=== PATIENT | female | born 1945 | race Caucasian/White ===

== ENCOUNTER 2016-06-24 16:10 | Emergency (ER) | payer MEDICARE, BC ==
[~2016-06-24] VITALS: Ht 154.9 cm; Wt 43.5 kg
[2016-06-24 16:10] VITALS: BP 129/82
== END 2016-06-24 17:14 | disposition home or self-care (01) ==
LOC: ER 16:12
DX: H60.8X2 Other otitis externa, left ear (principal)
CPT/HCPCS: A4606; Z7610

== ENCOUNTER 2023-03-17 16:24 | Inpatient (IN) | payer BC, MEDICARE ==
[~2023-03-17] VITALS: Ht 154.9 cm; Wt 72.6 kg
[2023-03-17 17:23] LABS: BASOPHILS # (AUTO) 0.1 K/uL (0.0-0.2); BASOPHILS % (AUTO) 1.2 % (0.0-2.0); EOSINOPHILS # (AUTO) 0.2 K/uL (0.0-0.7); LYMPHOCYTES # (AUTO) 1.4 K/uL (0.8-4.8); MEAN CORPUSCULAR HEMOGLOBIN 21 PG (26.0-33.0); MEAN CORPUSCULAR HGB CONC 30 g/dl (31.0-36.0); MEAN CORPUSCULAR VOLUME 70 fL (82-100); MONOCYTES # (AUTO) 0.5 K/uL (0.1-1.30); MONOCYTES % (AUTO) 5.8 % (2.0-12.0); NEUTROPHILS # (AUTO) 5.8 K/uL (1.8-8.9); PLATELET COUNT (AUTO) 232 K/uL (150-450); RED BLOOD CELL COUNT(AUTO) 2.83 MIL/uL (4.0-5.2); RED CELL DISTRIBUTION WIDTH 18.5 % (11.5-15.0)
[2023-03-17 17:25] LABS: HEMOGLOBIN 5.9 g/dL (11.5-14.8)
[2023-03-17 17:27] LABS: HEMATOCRIT 20 % (33-45)
[2023-03-17 17:33] LABS: CALCIUM, SERUM 8.9 mg/dL (8.5-10.1); CARBON DIOXIDE 22 mmol/L (21-32); CHLORIDE 106 mmol/L (98-107); CREATININE 1.3 mg/dL (0.6-1.3); GLUCOSE 98 mg/dL (74-106); POTASSIUM 4.2 mmol/L (3.5-5.1); SODIUM SERUM 139 mmol/L (136-145); UREA NITROGEN, BLOOD 23 mg/dL (7-18)
[2023-03-17] MEDS ORDERED: MELO-107 PO (18:50)
[2023-03-17] MEDS ORDERED: CLOP75TA15 PO (18:50)
[2023-03-17] MEDS ORDERED: ROSU20TA2 PO (18:50)
[2023-03-17] MEDS ORDERED: SERT25TA PO (18:50)
[2023-03-17 19:21] LABS: LYMPHOCYTES % (MANUAL) 16 % (16-48); MONOCYTES % (MANUAL) 6 % (0-11.0); NEUTROPHILS % (MANUAL) 77 (42-76)
[2023-03-17 19:22] LABS: ANISOCYTOSIS 1+; EOSINOPHILS % (MANUAL) 1 % (0-4); HYPOCHROMASIA 1+; PLATELET ESTIMATE ADEQUATE
[2023-03-17 19:23] LABS: OVALOCYTES 2+; TARGET CELLS 1+; TEAR DROP CELLS 1+
[2023-03-17 19:45] LABS: OCCULT BLOOD STOOL POSITIVE (NEGATIVE)
[2023-03-17] MEDS ORDERED: ACETAMINOPHEN 325 MG TABLET PO PRN (21:30)
[2023-03-17] MEDS ORDERED: MAG HYDROX/AL HYDROX/SIMETH 30 ML UDC PO PRN (21:30)
[2023-03-17] MEDS ORDERED: Z GUARD REMEDY 4 OZ OINT TP PRN (21:30)
[2023-03-17] MEDS ORDERED: ONDANSETRON HCL/PF 4 MG/2 ML VIAL IVP PRN (21:30)
[2023-03-17] MEDS ORDERED: MAGNESIUM HYDROXIDE 30 ML UDC PO PRN (21:30)
[2023-03-18] VITALS (7 sets, daily range): BP systolic 135–146; BP diastolic 78–86; TEMP 98.2–98.6; O2SAT 94–98
[2023-03-18 06:16] LABS: CALCIUM, SERUM 8.3 mg/dL (8.5-10.1); CARBON DIOXIDE 24 mmol/L (21-32); CHLORIDE 109 mmol/L (98-107); CREATININE 1.1 mg/dL (0.6-1.3); GLUCOSE 88 mg/dL (74-106); MAGNESIUM 2.1 mg/dL (1.8-2.4); PHOSPHORUS 4.1 mg/dL (2.5-4.9); POTASSIUM 4.2 mmol/L (3.5-5.1); SODIUM SERUM 140 mmol/L (136-145); UREA NITROGEN, BLOOD 18 mg/dL (7-18)
[2023-03-18 06:31] LABS: BASOPHILS # (AUTO) 0.1 K/uL (0.0-0.2); BASOPHILS % (AUTO) 0.8 % (0.0-2.0); EOSINOPHILS # (AUTO) 0.3 K/uL (0.0-0.7); EOSINOPHILS % (AUTO) 3.2 % (0.0-6.0); LYMPHOCYTES # (AUTO) 1.6 K/uL (0.8-4.8); LYMPHOCYTES % (AUTO) 19.7 % (20.0-44.0); MEAN CORPUSCULAR HEMOGLOBIN 23 PG (26.0-33.0); MEAN CORPUSCULAR HGB CONC 32 g/dl (31.0-36.0); MEAN CORPUSCULAR VOLUME 71 fL (82-100); MONOCYTES # (AUTO) 0.6 K/uL (0.1-1.30); MONOCYTES % (AUTO) 7.3 % (2.0-12.0); NEUTROPHILS # (AUTO) 5.7 K/uL (1.8-8.9); PLATELET COUNT (AUTO) 364 K/uL (150-450); RED BLOOD CELL COUNT(AUTO) 2.86 MIL/uL (4.0-5.2); WHITE BLOOD COUNT (AUTO) 8.2 K/uL (4.3-11.0)
[2023-03-18 06:36] LABS: HEMATOCRIT 20 % (33-45); HEMOGLOBIN 6.5 g/dL (11.5-14.8)
[2023-03-18 07:58] LABS: EOSINOPHILS % (MANUAL) 3 % (0-4); LYMPHOCYTES % (MANUAL) 15 % (16-48); MONOCYTES % (MANUAL) 7 % (0-11.0); NEUTROPHILS % (MANUAL) 75 (42-76)
[2023-03-18 07:59] LABS: ANISOCYTOSIS 1+; HYPOCHROMASIA 1+; OVALOCYTES 1+; PLATELET ESTIMATE ADEQUATE
[2023-03-18 08:08] LABS: THYROID STIMULATING HORMONE 1.797 uIU/mL (0.358-3.74)
[2023-03-18] MEDS: IV D5/0.45 NACL 1,000 ML IV PRN (08:37)
[2023-03-18] MEDS: PANTOPRAZOLE 40 MG VIAL IV SCH ×2 (08:46→22:00)
[2023-03-18] MEDS ORDERED: ANESTHESIA TRAY IN PYXIS 1 EA TRAY MC ONE (11:50)
[2023-03-19] MEDS: IV D5/0.45 NACL 1,000 ML IV PRN (02:53)
[2023-03-19 07:31] LABS: BASOPHILS # (AUTO) 0.1 K/uL (0.0-0.2); EOSINOPHILS # (AUTO) 0.3 K/uL (0.0-0.7); EOSINOPHILS % (AUTO) 4.3 % (0.0-6.0); HEMATOCRIT 25 % (33-45); LYMPHOCYTES # (AUTO) 1.3 K/uL (0.8-4.8); LYMPHOCYTES % (AUTO) 16.5 % (20.0-44.0); MEAN CORPUSCULAR HEMOGLOBIN 23 PG (26.0-33.0); MEAN CORPUSCULAR HGB CONC 32 g/dl (31.0-36.0); MEAN CORPUSCULAR VOLUME 74 fL (82-100); MONOCYTES # (AUTO) 0.7 K/uL (0.1-1.30); MONOCYTES % (AUTO) 8.5 % (2.0-12.0); NEUTROPHILS # (AUTO) 5.6 K/uL (1.8-8.9); NEUTROPHILS % (AUTO) 69.7 % (43.0-81.0); PLATELET COUNT (AUTO) 344 K/uL (150-450); RED BLOOD CELL COUNT(AUTO) 3.43 MIL/uL (4.0-5.2); RED CELL DISTRIBUTION WIDTH 21.6 % (11.5-15.0)
[2023-03-19] MEDS ORDERED: PEG 3350/NA SULF,BICARB,CL/KCL 4,000 ML BOTTLE PO ONE (08:00)
[2023-03-19] MEDS: PANTOPRAZOLE 40 MG VIAL IV SCH ×2 (08:31→20:20)
[2023-03-19 08:41] VITALS: BP 137/82; TEMP 98.4; O2SAT 96
[2023-03-19 11:14] LABS: EOSINOPHILS % (MANUAL) 9 % (0-4); LYMPHOCYTES % (MANUAL) 15 % (16-48); MONOCYTES % (MANUAL) 8 % (0-11.0); MYELOCYTES % 1 % (0-0); NEUTROPHILS % (MANUAL) 67 (42-76); PLATELET ESTIMATE ADEQUATE
[2023-03-19 11:15] LABS: ANISOCYTOSIS 1+; HYPOCHROMASIA 1+; OVALOCYTES 1+
[2023-03-19 16:16] VITALS: BP 156/91; TEMP 99; O2SAT 96
[2023-03-19 20:30] VITALS: BP 153/83; TEMP 98.8; O2SAT 92
[2023-03-19 21:00] VITALS: O2SAT 95
[2023-03-20] VITALS: BP 140/82; TEMP 98.1; O2SAT 97
[2023-03-20 04:00] VITALS: BP 140/72; TEMP 98; O2SAT 96
[2023-03-20 07:30] VITALS: BP 155/87; TEMP 98.4; O2SAT 90
[2023-03-20] MEDS: PANTOPRAZOLE 40 MG VIAL IV SCH ×2 (10:09→21:43)
[2023-03-20 13:32] LABS: BASOPHILS # (AUTO) 0.1 K/uL (0.0-0.2); BASOPHILS % (AUTO) 0.9 % (0.0-2.0); EOSINOPHILS # (AUTO) 0.2 K/uL (0.0-0.7); EOSINOPHILS % (AUTO) 3.4 % (0.0-6.0); HEMATOCRIT 26 % (33-45); HEMOGLOBIN 7.9 g/dL (11.5-14.8); LYMPHOCYTES # (AUTO) 1.1 K/uL (0.8-4.8); LYMPHOCYTES % (AUTO) 17.4 % (20.0-44.0); MEAN CORPUSCULAR HEMOGLOBIN 23 PG (26.0-33.0); MEAN CORPUSCULAR HGB CONC 31 g/dl (31.0-36.0); MEAN CORPUSCULAR VOLUME 75 fL (82-100); MONOCYTES # (AUTO) 0.6 K/uL (0.1-1.30); MONOCYTES % (AUTO) 9.1 % (2.0-12.0); NEUTROPHILS # (AUTO) 4.3 K/uL (1.8-8.9); NEUTROPHILS % (AUTO) 69.2 % (43.0-81.0); PLATELET COUNT (AUTO) 312 K/uL (150-450); RED CELL DISTRIBUTION WIDTH 22.6 % (11.5-15.0); WHITE BLOOD COUNT (AUTO) 6.2 K/uL (4.3-11.0)
[2023-03-20 13:46] LABS: ALANINE AMINOTRANSFERASE < 6 U/L (12-78); ALKALINE PHOSPHATASE 79 U/L (46-116); ASPARTATE AMINOTRANSFERASE 15 U/L (15-37); BILIRUBIN,TOTAL 0.7 mg/dL (0.2-1.0); CALCIUM, SERUM 8.4 mg/dL (8.5-10.1); CARBON DIOXIDE 25 mmol/L (21-32); CHLORIDE 105 mmol/L (98-107); CREATININE 1.1 mg/dL (0.6-1.3); GLUCOSE 97 mg/dL (74-106); POTASSIUM 3.6 mmol/L (3.5-5.1); SODIUM SERUM 139 mmol/L (136-145); TOTAL PROTEIN, SERUM 6.2 g/dL (6.4-8.2); UREA NITROGEN, BLOOD 5 mg/dL (7-18)
[2023-03-20 13:47] LABS: INR 1.12 (0.91-1.10); PARTIAL THROMBOPLASTIN TIME 26.6 SEC (24.3-34.3); PROTHROMBIN TIME 11.8 SECS (9.2-11.1)
[2023-03-20 13:50] LABS: ALBUMIN < 0.6 g/dL (3.4-5.0)
[2023-03-20 15:23] LABS: APPEARANCE,URINE CLEAR (CLEAR); BILIRUBIN,URINE NEGATIVE (NEGATIVE); BLOOD, URINE NEGATIVE Ery/uL (NEGATIVE); COLOR,URINE YELLOW (YELLOW); KETONES,URINE TRACE mg/dL (NEGATIVE); LEUKOCYTE ESTERASE ,URINE NEGATIVE (NEGATIVE); NITRITE, URINE NEGATIVE (NEGATIVE); PROTEIN,URINE NEGATIVE (NEGATIVE); UGLUCOSE NEGATIVE (NEGATIVE); UROBILINOGEN,URINE 0.2 EU/dL (0.2)
[2023-03-20 16:00] VITALS: BP 152/92; TEMP 98.4; O2SAT 93
[2023-03-20] MEDS: ENOXAPARIN SODIUM 40 MG/0.4 ML DISP.SYRIN SQ SCH (18:29)
[2023-03-20 18:37] VITALS: BP 147/78; TEMP 98.6; O2SAT 93
[2023-03-20 20:00] VITALS: BP 104/48; TEMP 98.4; O2SAT 95
[2023-03-21] VITALS: BP 122/74; TEMP 98.2; O2SAT 94
[2023-03-21 04:00] VITALS: BP 138/89; TEMP 98; O2SAT 94
[2023-03-21 07:26] LABS: BASOPHILS % (AUTO) 0.5 % (0.0-2.0); EOSINOPHILS # (AUTO) 0.3 K/uL (0.0-0.7); EOSINOPHILS % (AUTO) 4.2 % (0.0-6.0); HEMATOCRIT 25 % (33-45); HEMOGLOBIN 7.9 g/dL (11.5-14.8); LYMPHOCYTES % (AUTO) 16.7 % (20.0-44.0); MEAN CORPUSCULAR HEMOGLOBIN 24 PG (26.0-33.0); MEAN CORPUSCULAR HGB CONC 32 g/dl (31.0-36.0); MEAN CORPUSCULAR VOLUME 74 fL (82-100); MONOCYTES # (AUTO) 0.6 K/uL (0.1-1.30); MONOCYTES % (AUTO) 9.5 % (2.0-12.0); NEUTROPHILS # (AUTO) 4.3 K/uL (1.8-8.9); NEUTROPHILS % (AUTO) 69.1 % (43.0-81.0); PLATELET COUNT (AUTO) 317 K/uL (150-450); RED BLOOD CELL COUNT(AUTO) 3.32 MIL/uL (4.0-5.2); RED CELL DISTRIBUTION WIDTH 23.3 % (11.5-15.0); WHITE BLOOD COUNT (AUTO) 6.3 K/uL (4.3-11.0)
[2023-03-21 07:30] VITALS: BP 154/92; TEMP 99; O2SAT 91
[2023-03-21 08:01] LABS: ALANINE AMINOTRANSFERASE 20 U/L (12-78); ALBUMIN 2.8 g/dL (3.4-5.0); ALKALINE PHOSPHATASE 65 U/L (46-116); ASPARTATE AMINOTRANSFERASE 13 U/L (15-37); BILIRUBIN,TOTAL 0.6 mg/dL (0.2-1.0); CALCIUM, SERUM 8.3 mg/dL (8.5-10.1); CARBON DIOXIDE 21 mmol/L (21-32); CHLORIDE 106 mmol/L (98-107); CREATININE 1.1 mg/dL (0.6-1.3); GLUCOSE 107 mg/dL (74-106); PHOSPHORUS 4.1 mg/dL (2.5-4.9); POTASSIUM 3.7 mmol/L (3.5-5.1); SODIUM SERUM 139 mmol/L (136-145); UREA NITROGEN, BLOOD 12 mg/dL (7-18)
[2023-03-21] MEDS: PANTOPRAZOLE 40 MG VIAL IV SCH ×2 (08:48→21:47)
[2023-03-21] MEDS: ENOXAPARIN SODIUM 40 MG/0.4 ML DISP.SYRIN SQ SCH (08:50)
[2023-03-21] MEDS: METOPROLOL TARTRATE 50 MG TABLET PO SCH ×2 (09:24→21:48)
[2023-03-21 16:08] VITALS: BP 96/58; TEMP 99.1; O2SAT 98
[2023-03-21 20:00] VITALS: BP 130/78; TEMP 98.1; O2SAT 93
[2023-03-21] MEDS: IV D5/0.45 NACL 1,000 ML IV PRN (22:29)
[2023-03-22] VITALS: BP 126/83; TEMP 97.5; O2SAT 93
[2023-03-22 04:00] VITALS: BP 107/75; TEMP 98.1; O2SAT 95
[2023-03-22 08:00] VITALS: BP 129/74; TEMP 98.7; O2SAT 100
[2023-03-22] MEDS: ENOXAPARIN SODIUM 40 MG/0.4 ML DISP.SYRIN SQ SCH (09:00)
[2023-03-22] MEDS: METOPROLOL TARTRATE 50 MG TABLET PO SCH ×2 (09:17→20:30)
[2023-03-22] MEDS: PANTOPRAZOLE 40 MG VIAL IV SCH ×2 (09:17→20:29)
[2023-03-22] MEDS ORDERED: PANT40TA49 PO (11:26)
[2023-03-22] MEDS ORDERED: METO50TA16 PO (11:26)
[2023-03-22] MEDS ORDERED: CT SWABBABLE VALVE TRANS SET 1 EA INFUS.SET MC ONE (11:38)
[2023-03-22] MEDS ORDERED: IOHEXOL-350 100 ML VIAL IV ONE (11:38)
[2023-03-22] MEDS ORDERED: METOPROLOL TARTRATE INJ 5 MG/5 ML AMPUL ONE (11:38)
[2023-03-22] MEDS ORDERED: IV NS 0.9% 250 ML IV ONE (11:38)
[2023-03-22] MEDS ORDERED: NITROGLYCERIN 0.4 MG/TAB BOTTLE ONE (11:39)
[2023-03-22 12:00] VITALS: BP 96/62; TEMP 98.8; O2SAT 96
[2023-03-22] MEDS ORDERED: METOPROLOL TARTRATE INJ 5 MG/5 ML AMPUL IVP PRN (12:00)
[2023-03-22] MEDS ORDERED: NITROGLYCERIN 0.4 MG/TAB BOTTLE SL ONE (12:00)
[2023-03-22 16:00] VITALS: BP 134/97; TEMP 97.7; O2SAT 98
[2023-03-22 20:00] VITALS: BP 126/84; TEMP 98.7; O2SAT 93
[2023-03-23] VITALS: BP 136/73; TEMP 98; O2SAT 98
[2023-03-23 04:00] VITALS: BP 124/84; TEMP 98; O2SAT 94
[2023-03-23] MEDS ORDERED: IOHEXOL 50 ML IV ONE (06:14)
[2023-03-23] MEDS ORDERED: ANESTHESIA TRAY IN PYXIS 1 EA TRAY MC ONE (06:15)
[2023-03-23] MEDS ORDERED: LIDOCAINE HCL/MPF 1% 30 ML VIAL IJ ONE (06:15)
[2023-03-23 08:00] VITALS: BP 129/84; TEMP 97.6; O2SAT 98
[2023-03-23] MEDS: ENOXAPARIN SODIUM 40 MG/0.4 ML DISP.SYRIN SQ SCH (09:00)
[2023-03-23] MEDS: PANTOPRAZOLE 40 MG VIAL IV SCH (09:19)
[2023-03-23] MEDS: METOPROLOL TARTRATE 50 MG TABLET PO SCH (09:20)
[2023-03-23 12:00] VITALS: BP 133/78; TEMP 97.6; O2SAT 96
[2023-03-23] MEDS ORDERED: CEFAZOLIN 1 GM in IV D5W 50 ML IV SCH (15:00)
[2023-03-23 16:00] VITALS: BP 111/66; TEMP 98.1; O2SAT 94
== END 2023-03-23 16:58 | disposition home or self-care (01) | DRG 377 ==
LOC: ER 16:25 → TRANSITION 22:18 → TELE 03-18 05:58 → MED 03-21 09:40 → TELE 03-21 09:51
PROVIDERS: ADMIT Internal Medicine; ATTEND Internal Medicine
PROC: 30233N1 Transfusion of Nonautologous Red Blood Cells into Peripheral Vein, Percutaneous Approach (ICD-10-PCS; 2023-03-17)
PROC: 0DB68ZX Excision of Stomach, Via Natural or Artificial Opening Endoscopic, Diagnostic (ICD-10-PCS; principal; 2023-03-18)
PROC: 0DJD8ZZ Inspection of Lower Intestinal Tract, Via Natural or Artificial Opening Endoscopic (ICD-10-PCS; 2023-03-20)
PROC: 06H03DZ Insertion of Intraluminal Device into Inferior Vena Cava, Percutaneous Approach (ICD-10-PCS; 2023-03-23)
PROC: B519YZA Fluoroscopy of Inferior Vena Cava using Other Contrast, Guidance (ICD-10-PCS; 2023-03-23)
DX: K29.71 Gastritis, unspecified, with bleeding (principal); I21.A1 Myocardial infarction type 2; I26.99 Other pulmonary embolism without acute cor pulmonale; I69.354 Hemiplegia and hemiparesis following cerebral infarction affecting left non-dominant side; K25.4 Chronic or unspecified gastric ulcer with hemorrhage; D50.0 Iron deficiency anemia secondary to blood loss (chronic); K44.9 Diaphragmatic hernia without obstruction or gangrene; K57.30 Diverticulosis of large intestine without perforation or abscess without bleeding; K64.8 Other hemorrhoids; Z79.02 Long term (current) use of antithrombotics/antiplatelets; Z79.899 Other long term (current) drug therapy; Z79.82 Long term (current) use of aspirin; E78.5 Hyperlipidemia, unspecified; M17.11 Unilateral primary osteoarthritis, right knee; N28.1 Cyst of kidney, acquired; K80.20 Calculus of gallbladder without cholecystitis without obstruction; I25.10 Atherosclerotic heart disease of native coronary artery without angina pectoris; K82.8 Other specified diseases of gallbladder
CPT/HCPCS: 36415; 71045-TC; 74018; 75574; 80048-TC; 80053-TC; 80061-TC; 82272-TC; 82728-TC; 83540-TC; 83735-TC; 84100-TC; 84439-TC; 84443-TC; 84484-TC; 85025-TC; 85303; 85610-TC; 85730-TC; 86850-TC; 93307-TC; 93970-TC; A4223; C1769; C1880; C9113; G0378; J0690; J1644; J1650; J2405; J2704; J3490; J7030; J7040; J7050; J7060; P9016; Q9967